=== PATIENT | male | born 1995 | race Caucasian/White ===

== ENCOUNTER 2019-04-15 05:49 | Inpatient (IN) | payer BC ==
[~2019-04-15] VITALS: Ht 185.4 cm; Wt 60.7 kg
[~2019-04-15 05:49] MED LIST: NO HOME MEDICATIONS
[2019-04-15 07:45] LABS: ALBUMIN 4.4 gm/dL (3.5-5.0); BASO % 0.2 % (0.0-2.0); BILIRUBIN,TOTAL 2.1 mg/dL (0.0-1.0); CALCIUM 9.8 mg/dL (8.4-10.2); CREATININE, serum 0.83 (0.66-1.25); GRAN % 87.9 % (42.2-75.2); HEMATOCRIT 43.4 % (42.0-52.0); LYMPH # 0.7 (1.2-3.4); LYMPH % 3.8 % (20.0-51.0); MEAN CELL VOLUME 87 fl (80.0-100.0); MEAN CORPUSCULAR HEMOGLOBIN 30 pg (27.0-31.0); MEAN CORPUSCULAR HGB CONC 35 g/dl (33.0-37.0); MEAN PLATELET VOLUME 9.6 fl (7.4-10.4); MONO # 1.4 (0.1-0.6); MONO % 7.6 % (1.7-9.3); PLATELET COUNT 268 K/mm3 (130-400); POTASSIUM 3.9 mmol/L (3.4-5.0); REDCELL DISTRIBUTION WIDTH-CV 12.7 % (11.5-14.5); TOTAL PROTEIN 7.9 gm/dL (6.4-8.2)
[2019-04-15 07:55] LABS: C-REACTIVE PROTEIN 15.9 mg/dL (0.0-0.9)
[2019-04-15 08:03] LABS: COLLECTION METHOD CLEAN CATCH
[2019-04-15 08:22] LABS: MUCOUS Present /lpf; PH 6 (5-8); SQUAMOUS EPITHELIAL 0-2 /hpf; URINE APPEARANCE Hazy; URINE BACTERIA None Seen /hpf; URINE BILIRUBIN Negative (NEGATIVE); URINE BLOOD Negative (NEGATIVE); URINE COLOR Amber; URINE GLUCOSE Negative (NEGATIVE); URINE KETONE 2+ (NEGATIVE); URINE LEUKOCYTE ESTERASE Negative (NEGATIVE); URINE NITRATE Negative (NEGATIVE); URINE PROTEIN(semi-quant) 1+ (NEGATIVE)
--- NOTE | 2019-04-15 14:00 | NUR ---
PT ADMITTED TO FLOOR AT THIS TIME. NO C/O PAIN AT THIS TIME, STATES FEELS PRETTY WELL SINCE HE WAS IN THE ER AND RECIEVED MEDS THERE. NO OTHER ISSUES OR CONSERNS VOICED. PLEASENT AND COOPERATIVE.
[2019-04-15 15:13] VITALS: BP 99/47; PULSE 70; TEMP 98.2
[2019-04-15 16:50] VITALS: BP 94/45; PULSE 79; TEMP 98
--- NOTE | 2019-04-15 18:29 | NUR ---
PT HAD UNEVENTFUL AFTERNOON. NO ISSUES OR CONSERNS VOICED. NO NEED FOR PAIN MEDS OR ANTINAUSEA MEDS AT THIS TIME. IV FLUIDS INFUSING WITHOUT ISSUE.
[2019-04-15 19:54] VITALS: BP 108/51; PULSE 80; TEMP 98.3
--- NOTE | 2019-04-15 21:21 | NUR ---
PT IN BED WITH HOB ELEVATED TO 45 DEGREE ANGLE. PT HAS PAIN AT MID-RIGHT QUAD ON PALPATION. NO NAUSEA OR VOMITING, AND NO NEEDS AT THIS TIME, CALL LIGHT WITHIN REACH.
[2019-04-15 23:25] VITALS: BP 120/48; PULSE 83; TEMP 98.5
--- NOTE | 2019-04-16 01:29 | NUR ---
PT SLEEPING/RESTING IN BED, WITH NO C/O PAIN OR DISCOMFORT AND CALL LIGHT WITHIN REACH.
[2019-04-16 03:44] VITALS: BP 122/41; PULSE 97; TEMP 99.2
--- NOTE | 2019-04-16 05:30 | NUR ---
UNEVENTFUL NIGHT, PT SLEEPING WELL, BRIEFLY AWAKENS AND HAS NO C/O PAIN OR DISCOMFORT. CALL LIGHT WITHIN REACH.
[2019-04-16 07:28] LABS: BASO % 0.3 % (0.0-2.0); EOS % 0.3 % (0-4.0); GRAN # 9.4 (1.4-6.5); GRAN % 82.8 % (42.2-75.2); LYMPH # 0.9 (1.2-3.4); LYMPH % 7.6 % (20.0-51.0); MEAN CELL VOLUME 90 fl (80.0-100.0); MEAN CORPUSCULAR HGB CONC 34 g/dl (33.0-37.0); MEAN PLATELET VOLUME 9.6 fl (7.4-10.4); MONO % 8.5 % (1.7-9.3); PLATELET COUNT 203 K/mm3 (130-400); RED BLOOD COUNT 3.98 M/mm3 (4.20-5.60); REDCELL DISTRIBUTION WIDTH-CV 12.9 % (11.5-14.5)
[2019-04-16 07:34] LABS: HEMATOCRIT 35.8 % (42.0-52.0); MEAN CORPUSCULAR HEMOGLOBIN 30 pg (27.0-31.0)
[2019-04-16 07:41] LABS: BILIRUBIN,TOTAL 1.8 mg/dL (0.0-1.0); CALCIUM 8.2 mg/dL (8.4-10.2); CREATININE, serum 0.85 (0.66-1.25); POTASSIUM 3.9 mmol/L (3.4-5.0); TOTAL PROTEIN 5.7 gm/dL (6.4-8.2)
[2019-04-16 08:22] VITALS: BP 95/50; PULSE 89; TEMP 98.6
--- NOTE | 2019-04-16 10:08 | NUR ---
SW attended clinical rounds. Patient lives independently at home with his roommate. Patient reports he does not have a PCP but would like to review the PCP list for [place]. SW provided. Patient's preferred pharmacy is [facility]. Patient is independent with all ADLs. SW does not anticipate any discharge needs.
--- NOTE | 2019-04-16 10:37 | NUR ---
Initial visit; Patient thanked Jacquard [employer] Pol[employer] Operator for looking in on him and offering God's blessings.
[2019-04-16 11:44] VITALS: BP 106/52; PULSE 71; TEMP 98.1
[2019-04-16 15:21] VITALS: BP 113/53; PULSE 70; TEMP 98.2
--- NOTE | 2019-04-16 18:31 | NUR ---
PT HAD UNEVENTFUL DAY. IV FLUIDS INFUSING WITHOUT ISSUES, ZOSYN INFUSED ORDERED. NO C/O PAIN THIS SHIFT. DIET ADVANCED TO GENERAL. NO ISSUES OR CONCERNS VOICED.
--- NOTE | 2019-04-16 19:29 | NUR ---
PT IN ROOM WITH GIRLFRIEND, SITTING ON BENCH LOOKING AT LAPTOP. PT A/O X4, WITH NO C/O PAIN OR DISCOMFORT AND HAS EAT ALL HIS SUPPER. HAS SLIGHT DISCOMFORT TO RIGHT LOWER QUAD WHEN PALPATED, BUT MORE OF A PRESSURE THAN PAIN. NO NEEDS AT THIS TIME, CALL LIGHT WITHIN REACH.
[2019-04-16 20:39] VITALS: BP 107/51; PULSE 84; TEMP 98.2
[2019-04-17 00:02] VITALS: BP 111/61; PULSE 69; TEMP 98.1
--- NOTE | 2019-04-17 00:12 | NUR ---
PT'S BS WAS 72, GAVE SANDWICH BOX WITH APPLE JUICE. PT EATING AND HAS NO C/O STOMACH PAIN OR ANY OTHER PAIN. CALL LIGHT WITHIN REACH.
[2019-04-17 04:53] VITALS: BP 101/57; PULSE 54; TEMP 98
[2019-04-17 06:20] LABS: BASO % 0.3 % (0.0-2.0); EOS # 0.1 (0.0-0.7); EOS % 1.4 % (0-4.0); GRAN # 4.7 (1.4-6.5); GRAN % 71.6 % (42.2-75.2); HEMOGLOBIN 11.9 g/dl (13.5-18.0); LYMPH % 15.1 % (20.0-51.0); MEAN CELL VOLUME 90 fl (80.0-100.0); MEAN CORPUSCULAR HEMOGLOBIN 30 pg (27.0-31.0); MEAN CORPUSCULAR HGB CONC 33 g/dl (33.0-37.0); MEAN PLATELET VOLUME 10.2 fl (7.4-10.4); MONO # 0.7 (0.1-0.6); MONO % 11.3 % (1.7-9.3); PLATELET COUNT 203 K/mm3 (130-400); RED BLOOD COUNT 3.95 M/mm3 (4.20-5.60)
[2019-04-17 06:21] LABS: HEMATOCRIT 35.6 % (42.0-52.0)
[2019-04-17 06:37] LABS: BILIRUBIN,TOTAL 0.7 mg/dL (0.0-1.0); CALCIUM 8.1 mg/dL (8.4-10.2); CREATININE, serum 0.7 (0.66-1.25); POTASSIUM 3.7 mmol/L (3.4-5.0); TOTAL PROTEIN 5.7 gm/dL (6.4-8.2)
[2019-04-17 07:27] VITALS: BP 104/59; PULSE 54; TEMP 98.1
--- NOTE | 2019-04-17 09:00 | NUR ---
Pt is awake and A/Ox4, sitting up on the side of the bed. He denies pain at this time. Tolerated general diet for breakfast without difficulty. IVF are infusing without complications. Pt denies any other needs, will monitor.
[2019-04-17 11:08] VITALS: BP 101/54; PULSE 65; TEMP 98.6
[2019-04-17 16:49] VITALS: BP 107/58; PULSE 59; TEMP 98
[2019-04-17] MEDS ORDERED: AMOXICILLIN 8751 TAB PO (17:12)
[2019-04-17] MEDS ORDERED: PREDNISONE10 MG PO (17:15)
--- NOTE | 2019-04-17 17:39 | NUR ---
Pt was discharged home from hospital. All discharge instructions and paperwork was reviewed with pt who expressed understanding and had no questions. Saline lock removed, catheter tip intact. New prescriptions given. Pt escorted out of facility by staff.
== END 2019-04-17 17:40 | disposition home or self-care (01) | DRG 872 ==
LOC: COL.ER 05:49 → MEDICAL 09:31
PROVIDERS: Emergency Medicine; Physician Assistant; ADMIT Student in an Organized Health Care Education/Training Program
DX: A41.9 Sepsis, unspecified organism (principal); K50.014 Crohn's disease of small intestine with abscess; K50.013 Crohn's disease of small intestine with fistula; N39.0 Urinary tract infection, site not specified; K52.9 Noninfective gastroenteritis and colitis, unspecified; D73.89 Other diseases of spleen; E16.2 Hypoglycemia, unspecified; Z87.891 Personal history of nicotine dependence
CPT/HCPCS: 99222-AI; 99232-AI; J0780; J1170; J1885; J2270; J2543; J7030; J7512; Q9967